=== PATIENT | female | born 1970 | race Two or more races ===

== ENCOUNTER → 2016-09-28 | Outpatient (CLI) | payer BC ==
--- NOTE | ~2016-09-28 | MY26 ---
[facility] A Service of [facility] & [facility] RADIOLOGY TEXT RESULTS PATIENT: MEGHA BAPTISTE LOCATION: [facility] : 66 UNIT #: [id number] AGE: [address]: CORAZON TOBAR APRN SEX: F ORDER DR: [id number] [facility] [address] [place], [place] [address] [id number] O MR#: [id number] Acc #: [id number] NAME: MEGHA BAPTISTE : 1970 SEX: F STUDY DATE/TIME: 09/28/2016 9:17 UNIT: [facility] ROOM: STUDY DESCRIPTION: [facility] W/ CAD BILAT Attending Physician: Glenna Tobar M.D. Referring Physician: Glenna Tobar M.D. Ordering Physician: Glenna Tobar M.D. Primary Care Physician: Glenna Tobar M.D. MEDICAL IMAGING REPORT This report is preliminary unless electronic signature is present EXAM Bilateral digital diagnostic mammogram with CAD 09/28/2016 CLINICAL HISTORY 46-year-old asymptomatic female. No changes in abnormal screening mammogram. 1-year followed. No personal history of breast cancer. FINDINGS CC and MLO views of both breasts were obtained. Additional left MLO and left exaggerated CC views were obtained. The background breast parenchyma consists of scattered fibroglandular densities. There is some asymmetric distribution of glandular tissue in the upper, outer quadrant of the left breast, however, this is unchanged from 08/24/2015. No discrete mass, microcalcifications, or architectural distortion. Exam is compared to prior mammogram dating 03/10/2015 and 08/24/2015. IMPRESSION 1. Benign mammogram. 2. Recommendations: Annual screening mammogram. 3. Results of the study as well as my recommendations were discussed directly with the patient at the time of her visit to the department of radiology. Patient's over the age of 40 are entered into a reminder system with target due date for the next mammogram. BIRADS: 2 Benign findings Dictated by... Tobias Walton M.D. [facility] A Service of [facility] & [facility] RADIOLOGY TEXT RESULTS PATIENT: [facility]AP[facility]ISTE [id number] 66 UNIT #: [id number] AGE: [address]: CORAZON TOBAR APRN SEX: F ORDER DR: THIS IS AN ELECTRONICALLY VERIFIED REPORT Tobias Walton M.D. at 09/28/2016 2:07 PM COREY/cristina TD: 09/28/2016 13:48 JOB #: [id number] MEDICAL IMAGING REPORT Page 1 of 1 COPY
== END | disposition home or self-care (01) ==
LOC: CMAM 08:42
DX: N64.89 Other specified disorders of breast (principal); R92.8 Other abnormal and inconclusive findings on diagnostic imaging of breast
CPT/HCPCS: G0204